=== PATIENT | male | born 1955 | race Caucasian/White ===

== ENCOUNTER 2020-01-23 11:06 | Outpatient (CLI) | payer OTHER | END 2020-01-23 11:10 | disposition home or self-care (01) | LOC: RAD 11:06 | DX: M70.21 Olecranon bursitis, right elbow (principal) ==

== ENCOUNTER 2021-07-12 07:36 | Outpatient (CLI) | payer OTHER | END 2021-07-12 07:42 | disposition home or self-care (01) | LOC: TOM 07:36 | PROVIDERS: ATTEND Internal Medicine Gastroenterology | DX: K57.90 Diverticulosis of intestine, part unspecified, without perforation or abscess without bleeding (principal); R10.84 Generalized abdominal pain | CPT/HCPCS: 74177; Q9965 ==